=== PATIENT | female | born 2000 | race Hispanic/Latino ===

== ENCOUNTER 2022-01-27 21:19 | Emergency (ER) | payer SELFPAY ==
[2022-01-27] MEDS ORDERED: NA CHLORIDE 0.9% 500 ML ONE (22:49)
[2022-01-27] MEDS ORDERED: ASPIRIN 81 MG CHEWABLE TABLET ONE (22:49)
[2022-01-27] MEDS ORDERED: NA CHLORIDE 0.9% 1,000 ML ONE (22:49)
[2022-01-27 22:57] LABS: Urine Blood Trace-intact (Negative); Urine Glucose Negative (Negative); Urine Protein Negative (Negative); Urine pH 6.5 (5.0-7.0)
[2022-01-27] MEDS ORDERED: METHYLPREDNISOLONE 125 MG INJ ONE (23:02)
[2022-01-27] MEDS ORDERED: predniSONE 20 MG TAB ONE (23:02)
[2022-01-27] MEDS ORDERED: CEFTRIAXONE 1000 MG/VIAL ONE (23:03)
[2022-01-27] MEDS ORDERED: IPRATROPIUM BROM 0.5MG/2.5ML ONE (23:03)
[2022-01-27] MEDS ORDERED: AZITHROMYCIN 250 MG TAB ONE (23:03)
[2022-01-27] MEDS ORDERED: ALBUTEROL 2.5 MG/3 ML NEB SOL ONE (23:03)
[2022-01-27 23:18] LABS: Absolute Lymphocytes (CBC) 2.7 K/uL (0.7-4.9); Hematocrit 41.5 % (36.0-45.0); Lymphocytes % 33.3 % (15.3-44.8); Protime INR 0.98; RBC Red Blood Cell Count 4.66 M/uL (3.86-4.86)
[2022-01-27 23:32] LABS: ALT/SGPT 14 U/L (12-78); AST/SGOT 15 U/L (15-37); Albumin 4.3 g/dL (3.4-5.0); Alkaline Phosphatase 92 U/L (45-117); BUN Blood Urea Nitrogen 12 mg/dL (7-18); Bicarbonate 25 mmol/L (21-32); Bilirubin Total 0.3 mg/dL (0.2-1.0); Glucose Level 107 mg/dL (74-106); Magnesium 2.1 mg/dL (1.8-2.4); NT PRO-BNP 13 pg/mL (<125); Potassium 3.7 mmol/L (3.5-5.1); Protein, Total 8.3 g/dL (6.4-8.2); Sodium Level 137 mmol/L (136-145); Troponin High Sensitivity 3.2 pg/mL (<58.9)
[2022-01-27 23:33] LABS: Bilirubin Direct < 0.1 mg/dL (0-0.2)
--- NOTE | 2022-01-27 23:49 | ER ---
Nurse's Notes [facility] Name: Timoteo Franco Age: 21 yrs Sex: Female : 2000 Arrival Date: 01/27/2022 Time: 21:23 Bed 15 Private MD: Diagnosis: Dyspnea;Mild persistent asthma;Acute upper respiratory infection, unspecified Presentation: 01/27 21:31 Chief complaint: Patient states: SOB started 4 weeks ago with minimal activity. Reports al4 doctor visit 01/14 diagnosed with allergic reaction and prescribed prednisone. SOB went away for 2 weeks after prednisone completion, but has started back up today. Chest tightness and cough started today - patient states "this is the same thing that happened". Coronavirus screen: Vaccine status: Patient reports being unvaccinated. Ebola Screen: No symptoms or risks identified at this time. Initial Sepsis Screen: Does the patient meet any 2 criteria? No. Patient's initial sepsis screen is negative. Does the patient have a suspected source of infection? No. Patient's initial sepsis screen is negative. Risk Assessment: Do you want to hurt yourself or someone else? Patient reports no desire to harm self or others. Onset of symptoms was January 27, 2022. 21:31 Method Of Arrival: Ambulatory al4 21:31 Acuity: JOSI 3 al4 Triage Assessment: 21:36 General: Appears in no apparent distress. uncomfortable, Behavior is calm, cooperative, al4 denies pain but states "its more discomfort" . Pain: Denies pain. Neuro: Level of Consciousness is awake, alert, obeys commands, Oriented to person, place, time, situation. Cardiovascular: Patient's skin is warm and dry. Respiratory: Airway is patent Respiratory effort is unlabored, Respiratory pattern is regular. Historical: - Allergies: 21:36 No Known Allergies; al4 - Immunization history:: Adult Immunizations up to date. - Social history:: Smoking status: Patient denies any tobacco usage or history of. - Family history:: not pertinent. Screenin/03 00:09 Abuse screen: Denies threats or abuse. Denies injuries from another. Nutritional ld1 screening: No deficits noted. Tuberculosis screening: No symptoms or risk factors identified. Fall Risk None identified. Assessment: 01/27 22:09 Reassessment: Patient appears in no apparent distress at this time. patient observed al4 eating doritos chips in waiting room by RN . 22:23 Reassessment: ER PA assessing patient in triage room. al4 22:52 Reassessment: Patient appears in no apparent distress at this time. Patient and/or ld1 family updated on plan of care and expected duration. Pain level reassessed. Patient is alert, oriented x 3, equal unlabored respirations, skin warm/dry/pink. Vital Signs: 21:31 BP 131 / 88; Pulse 79; Resp 22; Temp 98.8; Pulse Ox 98% ; Weight 63.5 kg; Height 5 ft. al4 0 in. (152.40 cm); Pain 0/10; 22:23 BP 138 / 89; Pulse 78; Resp 20 S; Pulse Ox 100% on R/A; al4 21:31 Body Mass Index 27.34 (63.50 kg, 152.40 cm) al4 ED Course: 21:23 Patient arrived in ED. kz 21:24 Ed Leo PA is PHCP. [facility] 21:24 Etienne Vasquez MD is Attending Physician. [facility] 21:36 Triage completed. al4 21:36 Arm band placed on right wrist. al4 22:25 Etienne Vasquez MD is Attending Physician. peter 22:47 Genevieve Hernandez, SANDRA is Primary Nurse. ld1 22:50 XRAY Chest (1 view) In Process Unspecified. EDMS 23:07 Inserted saline lock: 20 gauge in right antecubital area, using aseptic technique. ld1 Blood collected. 23:11 Basic Metabolic Panel Sent. ld1 23:11 CBC with Diff Sent. ld1 23:11 D-Dimer Sent. ld1 23:11 LFT's Sent. ld1 23:11 Magnesium Sent. ld1 23:12 NT PRO-BNP Sent. ld1 23:12 PT-INR Sent. ld1 23:12 Troponin HS Sent. ld1 23:49 Johan Tjeada MD is Referral Physician. [facility] 01/28 00:10 Patient has correct armband on for positive identification. Call light in reach. Side ld1 rails up X 1. school lunch monitor on. Pulse ox on. NIBP on. 00:10 No provider procedures requiring assistance completed. IV discontinued, intact, ld1 bleeding controlled, No redness/swelling at site. Pressure dressing applied. Patient maintains SpO2 saturation greater than 95% on room air. Administered Medications: 01/27 23:07 Drug: Albuterol - atroVENT (ipratropium) (3:1) (2.5 mg - 0.5 mg) 3 ml Route: Nebulizer; ld1 23: Follow up: Response: No adverse reaction ld1 23:08 Drug: SOLU-Medrol (methylPrednisoLONE) 125 mg Route: IVP; Site: right antecubital; ld1 23:08 Follow up: Response: No adverse reaction ld1 23:09 Drug: Zithromax (azithromycin) 500 mg Route: PO; ld1 23: Follow up: Response: No adverse reaction ld1 23:09 Drug: predniSONE 40 mg Route: PO; ld1 23: Follow up: Response: No adverse reaction ld1 23:10 Drug: NS 0.9% 500 ml Route: IV; Rate: bolus; Site: right antecubital; ld1 23:10 Drug: NS 0.9% 1000 ml Route: IV; Rate: 125 ml/hr; Site: right antecubital; ld1 23:10 Drug: Aspirin 81 mg Route: PO; ld1 23:10 Follow up: Response: No adverse reaction ld1 23:10 Drug: Rocephin (cefTRIAXone) 1 grams Route: IV; Rate: per protocol; Site: right ld1 antecubital; Outcome: 23:49 Discharge ordered by MD. green 01/28 00:10 Discharged to home ambulatory, with family. ld1 Condition: stable Discharge instructions given to patient, Instructed on discharge instructions, follow up and referral plans. medication usage, Demonstrated understanding of instructions, follow-up care, medications, Prescriptions given X 4. 00:11 Patient left the ED. ld1 Signatures: Dispatcher [employer] EDEtienne Diaz MD MD cha Mickail, Joel, PA PA jmm Dibbern, Lauren, RN RN ld1 Timmy Oneill Kelly kz
--- NOTE | 2022-01-27 23:50 | EDPHYS ---
Physician Documentation [facility] Name: Timoteo Franco Age: 21 yrs Sex: Female : 2000 Arrival Date: 01/27/2022 Time: 21:23 Bed 15 Private MD: ED Physician Etienne Vasquez HPI: 01/27 23:16 This 21 yrs old Female presents to ER via Ambulatory with complaints of Chest peter Tightness, Breathing Difficulty. 23:16 The patient or guardian reports chest pain that is located primarily in the anterior peter chest wall, bilaterally. The pain does not radiate. Associated signs and symptoms: The patient has no apparent associated signs or symptoms. The chest pain is described as aching. Duration: The patient or guardian reports multiple episodes, with no pattern. Severity of pain: At its worst the pain was mild. The patient has experienced a previous episode, last week. Historical: - Allergies: 21:36 No Known Allergies; al4 - Immunization history:: Adult Immunizations up to date. - Social history:: Smoking status: Patient denies any tobacco usage or history of. - Family history:: not pertinent. ROS: 23:16 Constitutional: Negative for fever, chills, and weight loss, Eyes: Negative for injury, peter pain, redness, and discharge, ENT: Negative for injury, pain, and discharge, Neck: Negative for injury, pain, and swelling, Cardiovascular: Negative for chest pain, palpitations, and edema, Abdomen/GI: Negative for abdominal pain, nausea, vomiting, diarrhea, and constipation, Back: Negative for injury and pain, : Negative for injury, bleeding, discharge, and swelling, MS/Extremity: Negative for injury and deformity, Skin: Negative for injury, rash, and discoloration, Neuro: Negative for headache, weakness, numbness, tingling, and seizure, Psych: Negative for depression, anxiety, suicide ideation, homicidal ideation, and hallucinations, Allergy/Immunology: Negative for hives, rash, and allergies, Endocrine: Negative for neck swelling, polydipsia, polyuria, polyphagia, and marked weight changes, Hematologic/Lymphatic: Negative for swollen nodes, abnormal bleeding, and unusual bruising. 23:16 Respiratory: Positive for cough, shortness of breath, at rest. wheezing, inspiratory, expiratory, of the right posterior upper lobe, right posterior middle lobe and right posterior lower lobe. Exam: 23:16 Constitutional: This is a well developed, well nourished patient who is awake, alert, peter and in no acute distress. Head/Face: Normocephalic, atraumatic. Eyes: Pupils equal round and reactive to light, extra-ocular motions intact. Lids and lashes normal. Conjunctiva and sclera are non-icteric and not injected. Cornea within normal limits. Periorbital areas with no swelling, redness, or edema. ENT: Nares patent. No nasal discharge, no septal abnormalities noted. Tympanic membranes are normal and external auditory canals are clear. Oropharynx with no redness, swelling, or masses, exudates, or evidence of obstruction, uvula midline. Mucous membranes moist. Neck: Trachea midline, no thyromegaly or masses palpated, and no cervical lymphadenopathy. Supple, full range of motion without nuchal rigidity, or vertebral point tenderness. No Meningismus. Chest/axilla: Normal chest wall appearance and motion. Nontender with no deformity. No lesions are appreciated. Cardiovascular: Regular rate and rhythm with a normal S1 and S2. No gallops, murmurs, or rubs. Normal PMI, no JVD. No pulse deficits. Abdomen/GI: Soft, non-tender, with normal bowel sounds. No distension or tympany. No guarding or rebound. No evidence of tenderness throughout. Back: No spinal tenderness. No costovertebral tenderness. Full range of motion. Skin: Warm, dry with normal turgor. Normal color with no rashes, no lesions, and no evidence of cellulitis. MS/ Extremity: Pulses equal, no cyanosis. Neurovascular intact. Full, normal range of motion. Neuro: Awake and alert, GCS 15, oriented to person, place, time, and situation. Cranial nerves II-XII grossly intact. Motor strength 5/5 in all extremities. Sensory grossly intact. Cerebellar exam normal. Normal gait. Psych: Awake, alert, with orientation to person, place and time. Behavior, mood, and affect are within normal limits. 23:16 ECG was reviewed by the Attending Physician. 23:16 Respiratory: the patient does not display signs of respiratory distress, Respirations: labored breathing, is not present, Breath sounds: bronchial sounds, that are mild, are scattered, rhonchi, that are mild, are scattered, stridor, is not appreciated, + upper airway congestion. wheezing: inspiratory expiratory is scattered, is heard in the right posterior upper lobe, right posterior middle lobe and right posterior lower lobe. 23:32 Musculoskeletal/extremity: ROM: no acute changes, intact in all extremities, full peter active range of motion, full passive range of motion, Circulation is intact in all extremities. Sensation intact. Compartment Syndrome exam of affected extremity: is normal. DVT Exam: No signs of deep vein thrombosis. no pain, no swelling, no tenderness, negative Homans' sign noted on exam, no appreciated bluish discoloration, no erythema, no increased warmth. Vital Signs: 21:31 BP 131 / 88; Pulse 79; Resp 22; Temp 98.8; Pulse Ox 98% ; Weight 63.5 kg; Height 5 ft. al4 0 in. (152.40 cm); Pain 0/10; 22:23 BP 138 / 89; Pulse 78; Resp 20 S; Pulse Ox 100% on R/A; al4 21:31 Body Mass Index 27.34 (63.50 kg, 152.40 cm) al4 MDM: 22:24 Patient medically screened. [facility] 23:19 Differential diagnosis: abnormal EKG, acute myocardial infarction, anxiety, congestive peter heart failure pleurisy, pneumonia, pulmonary embolus, stable angina, unstable angina. HEART Score: History: Slightly Suspicious (0), ECG: Normal (0), Age: < or = 45 years (0), Risk Factors: No Risk Factors Known (0), Troponin: < or = 1 x Normal Limit (0), Total Score = 0. Data reviewed: vital signs, nurses notes, lab test result(s), EKG, radiologic studies, plain films. 01/27 22:26 Order name: Basic Metabolic Panel; Complete Time: 23:46 [facility] 01/27 22:26 Order name: CBC with Diff; Complete Time: 23:26 [facility] 01/27 22:26 Order name: D-Dimer; Complete Time: 23:26 [facility] 01/27 22:26 Order name: LFT's; Complete Time: 23:46 [facility] 01/27 22:26 Order name: Magnesium; Complete Time: 23:46 [facility] 01/27 22:26 Order name: NT PRO-BNP; Complete Time: 23:46 [facility] 01/27 22:26 Order name: PT-INR; Complete Time: 23:26 [facility] 01/27 22:26 Order name: Troponin HS; Complete Time: 23:46 [facility] 01/27 22:58 Order name: Urine Dipstick-Ancillary; Complete Time: 22:58 [facility] 01/27 22:26 Order name: XRAY Chest (1 view) [facility] 01/27 22:26 Order name: EKG; Complete Time: 22:27 [facility] 01/27 22:26 Order name: Cardiac monitoring; Complete Time: 23:11 [facility] 01/27 22:26 Order name: EKG - Nurse/Tech; Complete Time: 23:11 [facility] 01/27 22:26 Order name: IV Saline Lock; Complete Time: 23:11 [facility] 01/27 22:59 Order name: Urine --Ancillary (enter results); Complete Time: 23:26 [facility] 01/27 22:26 Order name: Labs collected and sent; Complete Time: 23:11 [facility] 01/27 22:26 Order name: O2 Per Protocol; Complete Time: 23:11 [facility] 01/27 22:26 Order name: O2 Sat Monitoring; Complete Time: 23:11 [facility] 01/27 22:27 Order name: Cardiac monitoring; Complete Time: 23:11 [facility] 01/27 22:27 Order name: EKG - Nurse/Tech; Complete Time: 23:11 [facility] 01/27 22:27 Order name: IV Saline Lock; Complete Time: 23:11 [facility] 01/27 22:27 Order name: Labs collected and sent; Complete Time: 23:11 [facility] 01/27 22:27 Order name: O2 Per Protocol; Complete Time: 23:11 [facility] 01/27 22:27 Order name: O2 Sat Monitoring; Complete Time: 23:11 [facility] EC:16 Rate is 69 beats/min. Rhythm is regular. QRS [place] is Normal. [place] interval is normal. QRS peter interval is normal. QT interval is normal. No Q waves. T waves are Normal. No ST changes noted. Clinical impression: Normal ECG and No evidence of ischemia. Interpreted by me. Reviewed by me. Administered Medications: 23:07 Drug: Albuterol - atroVENT (ipratropium) (3:1) (2.5 mg - 0.5 mg) 3 ml Route: Nebulizer; ld1 23:07 Follow up: Response: No adverse reaction ld1 23:08 Drug: SOLU-Medrol (methylPrednisoLONE) 125 mg Route: IVP; Site: right antecubital; ld1 23:08 Follow up: Response: No adverse reaction ld1 23:09 Drug: Zithromax (azithromycin) 500 mg Route: PO; ld1 23:09 Follow up: Response: No adverse reaction ld1 23:09 Drug: predniSONE 40 mg Route: PO; ld1 23:09 Follow up: Response: No adverse reaction ld1 23:10 Drug: NS 0.9% 500 ml Route: IV; Rate: bolus; Site: right antecubital; ld1 23:10 Drug: NS 0.9% 1000 ml Route: IV; Rate: 125 ml/hr; Site: right antecubital; ld1 23:10 Drug: Aspirin 81 mg Route: PO; ld1 23:10 Follow up: Response: No adverse reaction ld1 23:10 Drug: Rocephin (cefTRIAXone) 1 grams Route: IV; Rate: per protocol; Site: right ld1 antecubital; Disposition Summary: 01/27/22 23:49 Discharge Ordered Location: Home peter Problem: new peter Symptoms: have improved peter Condition: Stable peter Diagnosis - Dyspnea peter - Mild persistent asthma peter - Acute upper respiratory infection, unspecified peter Followup: peter - With: Private Physician - When: 2 - 3 days - Reason: Recheck today's complaints, Continuance of care, Re-evaluation by your physician Followup: peter - With: - When: 2 - 3 days - Reason: Recheck today's complaints, Re-evaluation by your physician Discharge Instructions: - Discharge Summary Sheet peter - Asthma, Adult peter - Upper Respiratory Infection, Adult peter - Cool Mist Vaporizer peter - Upper Respiratory Infection, Adult, [id number] peter - Asthma, Adult, [id number] peter - Cough, Adult, [id number] peter - Cough, Adult [facility] Forms: - Medication Reconciliation Form peter - Thank You Letter peter - Antibiotic Education peter - Prescription Opioid Use [facility] Prescriptions: - Albuterol Sulfate 2.5 mg /3 mL (0.083 %) Inhalation Solution for Nebulization - inhale 1 unit by NEBULIZATION route every 4-6 hours As needed; 1 box; Refills: [facility] 0, Product Selection Permitted - Zithromax Z-Javan 250 mg Oral Tablet - take 1 tablet by ORAL route as directed for 5 days Day 1 - take two (2) tablets peter one time. Day 2, 3, 4 , 5 take one (1) tablet once daily.; 6 tablet; Refills: 0, Product Selection Permitted - Prednisone 20 mg Oral Tablet - take 2 tablets by ORAL route once daily for 5 days; 10 tablet; Refills: 0, peter Product Selection Permitted - albuterol sulfate 90 mcg/actuation Inhalation HFA aerosol inhaler - inhale 2 puff by INHALATION route every 4 hours; 1 Pump; Refills: 0, Product jmm Selection Permitted Signatures: Dispatcher [employer] EDMS Etienne Vasquez MD MD cha Mickail, Joel, PA PA jmm Dibbern, Lauren, RN RN ld1 Timmy Oneill Corrections: (The following items were deleted from the chart) 22:42 22:27 Chest Single View+RAD.RAD.BRZ ordered. EDMS EDMS 23:10 22:27 BASIC METABOLIC PANEL+C.LAB.BRZ ordered. EDMS EDMS 23:10 22:27 CBC+H.LAB.BRZ ordered. EDMS EDMS 23:10 22:27 D-DIMER+COAG.LAB.BRZ ordered. EDMS EDMS 23:10 22:27 PROBNP+C.LAB.BRZ ordered. EDMS EDMS 23:10 22:27 Troponin High Sensitivity+C.LAB.BRZ ordered. EDMS EDMS
[2022-01-28 00:20] VITALS: TEMP 98.8
[2022-01-28 00:21] VITALS: BP 138/89; O2SAT 100
--- NOTE | 2022-01-28 10:50 | EKG ---
Test Date: 2022-01-27 Test Time: 21:44:27 [employer] Developer: KARL MEASUREMENT RESULTS: Intervals: Rate: 69 IL: 142 QRSD: 70 QT: 346 QTc: 370 [place]: P: 75 IL: 142 QRS: 78 T: 66 INTERPRETIVE STATEMENTS: Normal sinus rhythm Normal ECG No previous ECG available for comparison Electronically Signed On 01-28-22 10:49:24 CDT by Keon Garcia
--- NOTE | 2022-01-28 20:07 | RAD REPORT ---
EXAM DESCRIPTION: Chest Single View [employer]: XR CHEST 1 VIEW CLINICAL HISTORY: Shortness of breath. COMPARISON: None. TECHNIQUE: Single view AP chest radiograph(s). FINDINGS: The lungs are clear. No pulmonary infiltrate or edema identified. No pleural effusion. N o pneumothorax. Nonenlarged cardiomediastinal silhouette. No significant osseous abnormality. IMPRESSION: No acute cardiopulmonary abnormality identified by radiograph. Electronically signed by: Yamila Hunter MD 01/27/2022 11:09 PM CDT Due to temporary technical issues with the PACS/Fluency reporting system, reports are being signed by the in house radiologists without review as a courtesy to insure prompt reporting. The interpreting radiologist is fully responsible for the content of the report.
== END 2022-01-28 00:11 | disposition home or self-care (01) ==
LOC: ER 21:19
DX: J45.30 Mild persistent asthma, uncomplicated (principal); J06.9 Acute upper respiratory infection, unspecified; R07.9 Chest pain, unspecified
CPT/HCPCS: 36415; 71045; 80048; 80076; 81003; 81025; 83735; 83880; 84484; 85025; 85379; 85610; 93005; 94640; 96374; 96375; 99285; J2930; J7030; J7040; J7512

== ENCOUNTER 2022-10-06 13:00 | Emergency (ER) | payer SELFPAY ==
--- NOTE | 2022-10-06 13:55 | RAD REPORT ---
EXAM DESCRIPTION: RAD - Foot Right 3 View - 10/06/2022 1:47 pm CLINICAL HISTORY: Pain Pain and swelling COMPARISON: No comparisons FINDINGS: Subtle lucency involving the distal phalanx of the second toe base laterally is noted. Thi s may be old or acute a, correlation with point tenderness recommended. Elsewhere, there is no acute fracture seen.
--- NOTE | 2022-10-06 13:59 | EDPHYS ---
Physician Documentation [facility] Name: Timoteo Franco Age: 22 yrs Sex: Female : 2000 Arrival Date: 10/06/2022 Time: 13:03 Bed Treatment Private MD: ED Physician Etienne Vasquez HPI: 10/06 13:30 This 22 yrs old Female presents to ER via Unassigned with complaints of Foot snw Injury. 13:30 The patient presents with a contusion, an injury. The complaints affect the dorsum of snw right foot. Context: The problem was sustained Gym, resulted from a crush injury, from a heavy object, 45#weight, the patient can partially bear weight, the patient is able to ambulate. Onset: The symptoms/episode began/occurred suddenly, just prior to arrival. Treatment prior to arrival includes: no previous treatment. The patient has not experienced similar symptoms in the past. The patient has not recently seen a physician. 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 - Social history:: Smoking status: Patient denies any tobacco usage or history of. ROS: 13:30 Constitutional: Negative for fever, chills, and weight loss, Eyes: Negative for injury, snw pain, redness, and discharge, ENT: Negative for injury, pain, and discharge, Neck: Negative for injury, pain, and swelling, Cardiovascular: Negative for chest pain, palpitations, and edema, Respiratory: Negative for shortness of breath, cough, wheezing, and pleuritic chest pain, Abdomen/GI: Negative for abdominal pain, nausea, vomiting, diarrhea, and constipation, Back: Negative for injury and pain, : Negative for injury, bleeding, discharge, and swelling, Skin: Negative for injury, rash, and discoloration, Neuro: Negative for headache, weakness, numbness, tingling, and seizure, Psych: Negative for depression, anxiety, suicide ideation, homicidal ideation, and hallucinations. 13:30 MS/extremity: Positive for injury or acute deformity, decreased range of motion, swelling, tenderness. Exam: 13:29 Constitutional: This is a well developed, well nourished patient who is awake, alert, snw and in no acute distress. Head/Face: Normocephalic, atraumatic. Eyes: Pupils equal round and reactive to light, extra-ocular motions intact. Lids and lashes normal. Conjunctiva and sclera are non-icteric and not injected. Cornea within normal limits. Periorbital areas with no swelling, redness, or edema. Neck: Trachea midline, no thyromegaly or masses palpated, and no cervical lymphadenopathy. Supple, full range of motion without nuchal rigidity, or vertebral point tenderness. No Meningismus. Chest/axilla: Normal chest wall appearance and motion. Nontender with no deformity. No lesions are appreciated. Cardiovascular: Regular rate and rhythm with a normal S1 and S2. No gallops, murmurs, or rubs. Normal PMI, no JVD. No pulse deficits. Respiratory: Lungs have equal breath sounds bilaterally, clear to auscultation and percussion. No rales, rhonchi or wheezes noted. No increased work of breathing, no retractions or nasal flaring. Abdomen/GI: Soft, non-tender, with normal bowel sounds. No distension or tympany. No guarding or rebound. No evidence of tenderness throughout. Back: No spinal tenderness. No costovertebral tenderness. Full range of motion. Skin: Warm, dry with normal turgor. Normal color with no rashes, no lesions, and no evidence of cellulitis. Neuro: Awake and alert, GCS 15, oriented to person, place, time, and situation. Cranial nerves II-XII grossly intact. Motor strength 5/5 in all extremities. Sensory grossly intact. Cerebellar exam normal. Normal gait. Psych: Awake, alert, with orientation to person, place and time. Behavior, mood, and affect are within normal limits. 13:29 Musculoskeletal/extremity: Extremities: grossly normal except: noted in the right first toe, right second toe, right third toe and right fourth toe: decreased ROM, ecchymosis, swelling, Circulation is intact in all extremities. Sensation intact. Vital Signs: 13:49 BP 136 / 73; Pulse 106; Resp 16; Temp 98.8; Pulse Ox 98% on R/A; Weight 67.13 kg; jh5 Height 5 ft. 0 in. (152.40 cm); Pain 6/10; 13:49 Body Mass Index 28.90 (67.13 kg, 152.40 cm) [facility] MDM: 13:08 Patient medically screened. snw 13:31 Differential diagnosis: dislocation, closed fracture, contusion, subungal hematoma, fx. snw Data reviewed: vital signs, nurses notes. 13:32 I considered the following discharge prescriptions or medication management in the [facility] emergency department Medications were administered in the Emergency Department. See MAR. Special discussion: Based on the history and exam findings, there is no indication for further emergent testing or inpatient evaluation. I discussed with the patient/guardian the need to see the orthopedic surgeon for further evaluation of the symptoms. 13:55 Independent interpretation of the following test(s) in the Emergency Department X-Ray: snw My interpretation is right foot, 2nd toe proximal lateral distal phalanx avulsion fx. Counseling: I had a detailed discussion with the patient and/or guardian regarding: the historical points, exam findings, and any diagnostic results supporting the discharge/admit diagnosis, the presence of at least one elevated blood pressure reading (>120/80) during this emergency department visit, radiology results, the need for outpatient follow up, to return to the emergency department if symptoms worsen or persist or if there are any questions or concerns that arise at home. 10/06 13:28 Order name: Foot Right 3 View XRAY; Complete Time: 13:56 snw 10/06 13:28 Order name: Ice pack; Complete Time: 13:53 snw 10/06 13:28 Order name: Misc. Order: elevate lower ext; Complete Time: 13:53 snw 10/06 14:00 Order name: Walking boot; Complete Time: 14:29 snw Administered Medications: 14:36 Drug: Motrin (ibuprofen) 600 mg Route: PO; [facility] Disposition Summary: 10/06/22 13:58 Discharge Ordered Location: Home snw Condition: Stable snw Diagnosis - Pain in right toe(s) snw - Nondisplaced fracture of distal phalanx of right lesser toe(s) snw Followup: snw - With: Emergency Department - When: As needed - Reason: Worsening of condition Followup: snw - With: Private Physician - When: 2 - 3 days - Reason: Recheck today's complaints, Continuance of care, Re-evaluation by your physician Discharge Instructions: - Discharge Summary Sheet snw - RICE Therapy for Routine Care of Injuries snw - How to Use Cold Therapy snw - Foot Pain snw - How to Use a Cast Shoe snw Forms: - Medication Reconciliation Form snw - Thank You Letter snw - Antibiotic Education snw - Prescription Opioid Use snw Prescriptions: - Mobic 7.5 mg Oral Tablet - take 1 tablet by ORAL route once daily take with food; 20 tablet; Refills: 0, snw Product Selection Permitted Signatures: Dispatcher [employer] EDYamel Cuenca, OPTICS ENGINEER-C OPTICS ENGINEER-Csnw Tanya Day, RN RN jh5
--- NOTE | 2022-10-06 13:59 | ER ---
Nurse's Notes [facility] Name: Timoteo Franco Age: 22 yrs Sex: Female : 2000 Arrival Date: 10/06/2022 Time: 13:03 Bed Treatment Private MD: Diagnosis: Pain in right toe(s);Nondisplaced fracture of distal phalanx of right lesser toe(s) Presentation: 10/06 13:49 Chief complaint: Patient states: 45lb fell on right toes abut an hour ago. Can move jh5 toes, but are starting to bruise and swell. I took 1000 mg of Tylenol about an hour ago. Coronavirus screen: Vaccine status: Patient reports being unvaccinated. Client denies travel out of the [place] in the last 14 days. Ebola Screen: Patient negative for fever greater than or equal to 101.5 degrees Fahrenheit, and additional compatible Ebola Virus Disease symptoms Patient denies exposure to infectious person. Patient denies travel to an Ebola-affected area in the 21 days before illness onset. Initial Sepsis Screen: Does the patient meet any 2 criteria? No. Patient's initial sepsis screen is negative. Does the patient have a suspected source of infection? No. Patient's initial sepsis screen is negative. Risk Assessment: Do you want to hurt yourself or someone else? Patient reports no desire to harm self or others. Onset of symptoms was October 06, 2022. 13:49 Method Of Arrival: Ambulatory [facility] 13:49 Acuity: JOSI 3 [facility] Triage Assessment: 13:51 General: Appears in no apparent distress. Behavior is calm, cooperative, appropriate [facility] for age. Pain: Complains of pain in right foot. Musculoskeletal: No deficits noted. Injury Description: dropped weight on foot. 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 - Social history:: Smoking status: Patient denies any tobacco usage or history of. Screenin:36 [facility] ED Fall Risk Assessment (Adult) History of falling in the last 3 months, [facility] including since admission No falls in past 3 months (0 pts). Abuse screen: Denies threats or abuse. Denies injuries from another. Nutritional screening: No deficits noted. Tuberculosis screening: No symptoms or risk factors identified. Vital Signs: 13:49 BP 136 / 73; Pulse 106; Resp 16; Temp 98.8; Pulse Ox 98% on R/A; Weight 67.13 kg; jh5 Height 5 ft. 0 in. (152.40 cm); Pain 6/10; 13:49 Body Mass Index 28.90 (67.13 kg, 152.40 cm) [facility] ED Course: 13:03 Patient arrived in ED. rg4 13:08 Yamel Castle FNP-C [facility]. snw 13:08 Etienne Vasquez MD is Attending Physician. snw 13:45 Tanya Day, RN is Primary Nurse. jh5 13:49 Foot Right 3 View XRAY In Process Unspecified. EDMS 13:51 Triage completed. jh5 13:51 Arm band placed on right wrist. jh5 14:29 Walking boot applied to Right foot. em1 14:36 Patient has correct armband on for positive identification. jh5 14:36 No provider procedures requiring assistance completed. Patient did not have IV access 5 during this emergency room visit. Administered Medications: 14:36 Drug: Motrin (ibuprofen) 600 mg Route: PO; [facility] Medication: 14:37 VIS not applicable for this client. [facility] Outcome: 13:58 Discharge ordered by . snw 14:36 Discharged to home ambulatory. jh5 14:36 Condition: good 14:36 Discharge instructions given to patient, family, Instructed on discharge instructions, follow up and referral plans. medication usage, safety practices, Demonstrated understanding of instructions, follow-up care, medications, Prescriptions given X 1. 14:37 Patient left the ED. [facility] Signatures: Dispatcher [employer] EDOH Yamel Castle FNP-C FNP-Mundo Carrington em1 Carolyn Lindsay rg4 Tanya Day, RN RN [facility]
[2022-10-06] MEDS ORDERED: IBUPROFEN 400 MG TAB ONE (14:21)
[2022-10-06] MEDS ORDERED: IBUPROFEN 200 MG TAB PO ONE (14:21)
[2022-10-06 15:18] VITALS: BP 136/73; TEMP 98.8; O2SAT 98
== END 2022-10-06 14:37 | disposition home or self-care (01) ==
LOC: ER 13:00
DX: S92.534A Nondisplaced fracture of distal phalanx of right lesser toe(s), initial encounter for closed fracture (principal)
CPT/HCPCS: 99284